=== PATIENT | female | born 1995 | race Caucasian/White ===

== ENCOUNTER 2016-10-23 16:43 | Emergency (ER) | payer OTHER ==
[~2016-10-23] VITALS: Ht 157.5 cm; Wt 77.1 kg
[2016-10-23 16:47] VITALS: BP 106/65
== END 2016-10-23 17:38 | disposition home or self-care (01) ==
LOC: ED 16:43
DX: S30.0XXA Contusion of lower back and pelvis, initial encounter (principal); W17.89XA Other fall from one level to another, initial encounter; Y93.89 Activity, other specified; Y92.89 Other specified places as the place of occurrence of the external cause; Y99.8 Other external cause status

== ENCOUNTER 2019-06-09 18:55 | Emergency (ER) | payer MEDICAID ==
[~2019-06-09] VITALS: Ht 157.5 cm; Wt 73.5 kg
[2019-06-09 19:12] VITALS: BP 108/58; Ht 157.5 cm; Wt 73.5 kg
== END 2019-06-09 20:54 | disposition home or self-care (01) ==
LOC: ED 18:55
DX: J06.9 Acute upper respiratory infection, unspecified (principal)

== ENCOUNTER 2019-06-11 00:07 | Emergency (ER) | payer MEDICAID ==
[~2019-06-11] VITALS: Ht 157.5 cm; Wt 72.6 kg
[2019-06-11 00:11] VITALS: Ht 157.5 cm; Wt 72.6 kg
[2019-06-11 01:51] VITALS: BP 116/49
== END 2019-06-11 01:51 | disposition home or self-care (01) ==
LOC: ED 00:07
DX: J06.9 Acute upper respiratory infection, unspecified (principal); Z90.49 Acquired absence of other specified parts of digestive tract; Z87.19 Personal history of other diseases of the digestive system
CPT/HCPCS: Q0092; Q0162